=== PATIENT | male | born 1960 | race African-American/Black ===

== ENCOUNTER 2024-08-25 23:20 | Inpatient (IN) | payer OTHER ==
[2024-08-26] MEDS ORDERED: ACETAMINOPHEN INJECTION 100 ML ONE (00:20)
[2024-08-26] MEDS: ACETAMINOPHEN 1000 MG/100 ML BAG IVPB ONE ×2 (00:35→21:47)
[2024-08-26] MEDS ORDERED: MORPHINE SULFATE 2 MG/ML SYRINGE ONE (01:03)
[2024-08-26] MEDS: morphine CARPU-JECT 2 MG/1 ML DISP.SYRIN IVPUSH ONE (01:08)
[2024-08-26] MEDS ORDERED: ONDANSETRON 4 MG/2 ML VIAL ONE (01:18)
[2024-08-26 01:23] LABS: INR 0.96 (0.83-1.09); PROTHROMBIN TIME (PATIENT) 11.1 SEC (9.7-13.0)
[2024-08-26 01:26] LABS: ACTIVATED PTT 31.9 SECONDS (25.2-36.5)
[2024-08-26] MEDS: ONDANSETRON 4 MG/2 ML VIAL IVPUSH ONE (01:27)
[2024-08-26 01:30] LABS: BASO % 0.4 % (0-2.0); EOS % 2.5 % (0-4.5); HEMATOCRIT 27.5 % (35.4-49); LYMPH % 11.1 % (8-40); MCH 28.4 pg (25.7-33.7); MCHC 32.8 g/dl (32.0-35.9); MEAN CELL VOLUME 86.8 fl (80-96); MEAN PLT VOLUME 8.1 fl (7.5-11.1); MONO % 16.8 % (3.8-10.2); NEUT % 69.2 % (42.8-82.8); PLATELET COUNT 272 10^3/uL (134-434); RBC 3.17 M/mm3 (4.00-5.60); RDW 16.2 % (11.9-15.9)
[2024-08-26] MEDS ORDERED: HYDROmorphone HCl 2 MG/ML VIAL ONE (01:39)
[2024-08-26 01:44] LABS: CHLORIDE 102 mmol/L (98-107); SODIUM 136 mmol/L (136-145)
[2024-08-26] MEDS: HYDROmorphone HCl 2 MG/ML VIAL IVPUSH ONE (01:45)
[2024-08-26 01:46] LABS: CALCIUM 9.2 mg/dL (8.5-10.1)
[2024-08-26 01:47] LABS: ALBUMIN 3.4 g/dl (3.4-5.0); BLOOD UREA NITROGEN 61.6 mg/dL (7-18); CO2 27 mmol/L (21-32); GLUCOSE,RANDOM 77 mg/dL (74-106)
[2024-08-26 01:50] LABS: SGOT/AST 40 U/L (15-37); SGPT/ALT 60 U/L (13-61)
[2024-08-26 01:51] LABS: BILIRUBIN,TOTAL 0.5 mg/dL (0.2-1); TOT PROT 7.1 g/dl (6.4-8.2)
[2024-08-26 01:53] LABS: ALK PHOS 129 U/L (45-117)
[2024-08-26] MEDS ORDERED: PIPERACILLIN/TAZOB 4.5 GM 4.5 GM/100 ML BAG IVPB ONE (01:57)
[2024-08-26] MEDS ORDERED: VANCOMYCIN 1 GRAM (PRE-DOCKED) 1,000 MG/250 ML BAG IVPB ONE (01:58)
[2024-08-26] MEDS: PIPERACILLIN/TAZOB 4.5 GM 4.5 GM in DEXTROSE 5%-WATER 100 ML IVPB ONE (02:13)
[2024-08-26 02:15] LABS: ANION GAP 7 mmol/L (4-13); POTASSIUM 6.3 mmol/L (3.5-5.1)
[2024-08-26] MEDS: VANCOMYCIN 1,000 MG in DEXTROSE 5%-WATER - 250 ML IVPB ONE (02:24)
[2024-08-26 02:30] LABS: HIV INTERPRETATION NEGATIVE (NEGATIVE)
[2024-08-26 03:40] LABS: ERYTHROCYTE SEDIMENTATION RATE 14 mm/hr (0-20)
[2024-08-26 03:42] LABS: CHLORIDE 103 mmol/L (98-107); SODIUM 137 mmol/L (136-145)
[2024-08-26 03:43] LABS: CALCIUM 8.8 mg/dL (8.5-10.1); CO2 27 mmol/L (21-32)
[2024-08-26 03:44] LABS: BLOOD UREA NITROGEN 56.4 mg/dL (7-18); GLUCOSE,RANDOM 104 mg/dL (74-106)
[2024-08-26 03:47] LABS: CREATININE 6.1 mg/dL (0.55-1.3)
[2024-08-26 03:53] LABS: ANION GAP 7 mmol/L (4-13); POTASSIUM 6.2 mmol/L (3.5-5.1)
[2024-08-26] MEDS ORDERED: DEXTROSE 50%-WATER 25 GM/50 ML DISP.SYRIN ONE (04:16)
[2024-08-26] MEDS ORDERED: ALBUTEROL SO4 0.083% IH SOL 2.5 MG/3 ML VIAL.NEB. NEB ONE (04:16)
[2024-08-26] MEDS ORDERED: FUROSEMIDE 40 MG/4 ML INJECTABLE VIAL ONE (04:16)
[2024-08-26] MEDS ORDERED: INSULIN REGULAR HUMAN 100 UNITS/ML *VIAL ONE (04:17)
[2024-08-26] MEDS: DEXTROSE 50%-WATER - 25 GM/50 ML VIAL IVPUSH ONE (04:28)
[2024-08-26] MEDS: INSULIN REGULAR HUMAN 100 UNITS/ML *VIAL IVPUSH ONE (04:28)
[2024-08-26] MEDS: ALBUTEROL SO4 0.083% IH SOL 2.5 MG/3 ML VIAL.NEB. NEB ONE (04:28)
[2024-08-26] MEDS: FUROSEMIDE 40 MG/4 ML INJECTABLE VIAL IVPUSH ONE (04:29)
[2024-08-26] MEDS: SODIUM ZIRCONIUM CYCLOSILICATE (LOKELMA) 5 GM PACKET PO ONE (04:30)
[2024-08-26] MEDS ORDERED: SODIUM ZIRCONIUM CYCLOSILICATE (LOKELMA) 10 GM PACKET ONE (04:30)
[2024-08-26] MEDS ORDERED: amLODIPine BESYLATE 10 MG TABLET (FP) ONE (04:54)
[2024-08-26] MEDS ORDERED: LABETALOL HCL 100 MG TABLET (FP) ONE (04:54)
[2024-08-26] MEDS: LABETALOL HCL 100 MG TABLET (FP) PO ONE (04:56)
[2024-08-26] MEDS: amLODIPine BESYLATE 10 MG TABLET (FP) PO ONE (04:56)
[2024-08-26] MEDS: DEXTROSE 50%-WATER 25 GM/50 ML DISP.SYRIN IVPUSH ONE ×2 (06:50→08:17)
[2024-08-26] MEDS: DEXTROSE 10%-WATER - 1,000 ML IV SCH (07:09)
[2024-08-26 08:55] LABS: CHLORIDE 104 mmol/L (98-107); POTASSIUM 4.7 mmol/L (3.5-5.1); SODIUM 139 mmol/L (136-145)
[2024-08-26 08:58] LABS: ANION GAP 8 mmol/L (4-13); BLOOD UREA NITROGEN 59.7 mg/dL (7-18); CO2 28 mmol/L (21-32); MAGNESIUM 2.1 mg/dL (1.8-2.4)
[2024-08-26 09:02] LABS: CREATININE 6.5 mg/dL (0.55-1.3); PHOSPHOROUS 4.3 mg/dL (2.5-4.9)
[2024-08-26] MEDS ORDERED: DEXTROSE 10%-WATER - 1,000 ML IV SCH (09:16)
[2024-08-26] MEDS ORDERED: DEXTROSE 50%-WATER - 25 GM/50 ML VIAL IVPUSH PRN ×2 (09:29→09:33)
[2024-08-26 09:36] LABS: GLUCOSE,RANDOM 30 mg/dL (74-106); GLUCOSE,RANDOM 31 mg/dL (74-106)
[2024-08-26] MEDS ORDERED: DEXTROSE 50%-WATER 25 GM/50 ML DISP.SYRIN IVPUSH PRN (09:49)
[2024-08-26] MEDS ORDERED: PIPERACILLIN/TAZOB 2.25 GM 2.25 GM in DEXTROSE 5%-WATER - 50 ML IVPB SCH (10:00)
[2024-08-26] MEDS: PIPERACILLIN/TAZOB 2.25 GM 2.25 GM/50 ML BAG IVPB SCH (10:06)
[2024-08-26] MEDS: HEPARIN NA (PORCINE) 5,000 UNITS/ML 1ML VIAL SQ SCH (14:38)
[2024-08-26] MEDS ORDERED: SODIUM CHLORIDE 250 ML IV PRN (15:14)
[2024-08-26] MEDS: oxyCODONE HCL 5 MG TABLET PO PRN (17:34)
[2024-08-26] MEDS: amLODIPine BESYLATE 10 MG TABLET (FP) PO SCH (21:08)
[2024-08-26] MEDS: TAMSULOSIN HCL 0.4 MG CAP PO SCH (21:08)
[2024-08-26] MEDS: ATORVASTATIN CA 80 MG TABLET (FP) PO SCH (21:08)
[2024-08-26] MEDS: CEFTRIAXONE 2 GM-D5W BAG 2 GM/50 ML BAG IVPB SCH (21:46)
[2024-08-27] MEDS: HEPARIN NA (PORCINE) 5,000 UNITS/ML 1ML VIAL IVPUSH ONE (08:30)
[2024-08-27 09:17] LABS: BASO % 0.6 % (0-2.0); EOS % 3.4 % (0-4.5); HEMATOCRIT 26.9 % (35.4-49); HEMOGLOBIN 8.7 GM/dL (11.7-16.9); LYMPH % 11.8 % (8-40); MCH 28.3 pg (25.7-33.7); MCHC 32.2 g/dl (32.0-35.9); MEAN CELL VOLUME 87.7 fl (80-96); MEAN PLT VOLUME 7.9 fl (7.5-11.1); MONO % 14.4 % (3.8-10.2); NEUT % 69.8 % (42.8-82.8); PLATELET COUNT 249 10^3/uL (134-434); RBC 3.06 M/mm3 (4.00-5.60); RDW 15.6 % (11.9-15.9); WHITE BLOOD COUNT 8.6 K/mm3 (4.0-10.0)
[2024-08-27 09:24] LABS: CHLORIDE 99 mmol/L (98-107); POTASSIUM 5.5 mmol/L (3.5-5.1); SODIUM 135 mmol/L (136-145)
[2024-08-27 09:26] LABS: ANION GAP 9 mmol/L (4-13); BLOOD UREA NITROGEN 75.4 mg/dL (7-18); CALCIUM 8.9 mg/dL (8.5-10.1); CO2 26 mmol/L (21-32); GLUCOSE,RANDOM 134 mg/dL (74-106)
[2024-08-27 09:31] LABS: CREATININE 8.1 mg/dL (0.55-1.3)
[2024-08-27] MEDS: EPOETIN ALFA-EPBX 3,000 UNIT/ML VIAL IVPUSH ONE (09:47)
[2024-08-27] MEDS: HEPARIN NA (PORCINE) 5,000 UNITS/ML 1ML VIAL IVPUSH SCH (09:49)
[2024-08-27] MEDS: LABETALOL HCL 100 MG TABLET (FP) PO SCH (13:08)
[2024-08-27] MEDS: CLOPIDOGREL BISULFATE 75 MG TABLET (FP) PO SCH (13:08)
[2024-08-27] MEDS: ACETAMINOPHEN 1000 MG/100 ML BAG IVPB ONE (21:13)
[2024-08-28] MEDS: LABETALOL HCL 100 MG TABLET (FP) PO SCH (13:56)
[2024-08-28] MEDS: oxyCODONE HCL 5 MG TABLET PO PRN (21:34)
[2024-08-29] MEDS: MELATONIN 5 MG TABLETS PO PRN (21:25)
[2024-08-30 09:53] LABS: HEMOGLOBIN 8.7 GM/dL (11.7-16.9); MCH 28.3 pg (25.7-33.7); MCHC 32.4 g/dl (32.0-35.9); MEAN CELL VOLUME 87.4 fl (80-96); MEAN PLT VOLUME 7.4 fl (7.5-11.1); PLATELET COUNT 249 10^3/uL (134-434); RBC 3.09 M/mm3 (4.00-5.60); RDW 16.1 % (11.9-15.9); WHITE BLOOD COUNT 7.1 K/mm3 (4.0-10.0)
[2024-08-30] MEDS ORDERED: SODIUM CHLORIDE 250 ML IV PRN (09:55)
[2024-08-30] MEDS ORDERED: EPOETIN ALFA-EPBX 3,000 UNIT/ML VIAL IVPUSH ONE (10:15)
[2024-08-30 10:31] LABS: CHLORIDE 103 mmol/L (98-107); POTASSIUM 5.7 mmol/L (3.5-5.1); SODIUM 138 mmol/L (136-145)
[2024-08-30 10:34] LABS: CALCIUM 8.8 mg/dL (8.5-10.1)
[2024-08-30 10:35] LABS: ANION GAP 10 mmol/L (4-13); BLOOD UREA NITROGEN 67.8 mg/dL (7-18); CO2 26 mmol/L (21-32); GLUCOSE,RANDOM 93 mg/dL (74-106)
[2024-08-30 10:39] LABS: CREATININE 9.4 mg/dL (0.55-1.3)
[2024-08-30] MEDS: EPOETIN ALFA-EPBX 4,000 UNIT/ML VIAL IVPUSH ONE (11:24)
[2024-08-31] MEDS ORDERED: DEXTROSE 50%-WATER 25 GM/50 ML DISP.SYRIN IVPUSH PRN (18:47)
[2024-08-31] MEDS ORDERED: DEXTROSE 10%-WATER - 1,000 ML IV SCH (18:47)
[2024-08-31] MEDS: LABETALOL HCL 100 MG TABLET (FP) PO SCH (21:40)
[2024-08-31] MEDS: ATORVASTATIN CA 80 MG TABLET (FP) PO SCH (21:40)
[2024-08-31] MEDS: HEPARIN NA (PORCINE) 5,000 UNITS/ML 1ML VIAL SQ SCH (21:40)
[2024-08-31] MEDS: TAMSULOSIN HCL 0.4 MG CAP PO SCH (21:40)
[2024-08-31] MEDS: amLODIPine BESYLATE 10 MG TABLET (FP) PO SCH (21:41)
[2024-08-31] MEDS: DEXTROSE 10%-WATER - 500 ML IV SCH (23:41)
[2024-09-01] MEDS: MELATONIN 5 MG TABLETS PO PRN (00:05)
[2024-09-01] MEDS: oxyCODONE HCL 5 MG TABLET PO PRN (00:05)
[2024-09-01] MEDS: ACETAMINOPHEN 1000 MG/100 ML BAG IVPB ONE (00:10)
[2024-09-01] MEDS ORDERED: SODIUM CHLORIDE 250 ML IV PRN (08:05)
[2024-09-01 11:07] LABS: BASO % 0.6 % (0-2.0); EOS % 3.3 % (0-4.5); HEMOGLOBIN 8.9 GM/dL (11.7-16.9); LYMPH % 13.7 % (8-40); MCH 28.1 pg (25.7-33.7); MCHC 31.7 g/dl (32.0-35.9); MEAN CELL VOLUME 88.6 fl (80-96); MEAN PLT VOLUME 7.5 fl (7.5-11.1); MONO % 17.9 % (3.8-10.2); NEUT % 64.5 % (42.8-82.8); PLATELET COUNT 243 10^3/uL (134-434); RBC 3.15 M/mm3 (4.00-5.60); RDW 15.8 % (11.9-15.9); WHITE BLOOD COUNT 6.3 K/mm3 (4.0-10.0)
[2024-09-01] MEDS: CLOPIDOGREL BISULFATE 75 MG TABLET (FP) PO SCH (11:14)
[2024-09-01 11:17] LABS: CHLORIDE 100 mmol/L (98-107); SODIUM 143 mmol/L (136-145)
[2024-09-01 11:21] LABS: CALCIUM 9.2 mg/dL (8.5-10.1)
[2024-09-01 11:22] LABS: ALBUMIN 3.1 g/dl (3.4-5.0); ANION GAP 17 mmol/L (4-13); BLOOD UREA NITROGEN 44.4 mg/dL (7-18); CO2 26 mmol/L (21-32); GLUCOSE,RANDOM 113 mg/dL (74-106)
[2024-09-01 11:25] LABS: SGOT/AST 24 U/L (15-37); SGPT/ALT 41 U/L (13-61)
[2024-09-01 11:27] LABS: BILIRUBIN,TOTAL 0.6 mg/dL (0.2-1); TOT PROT 6.5 g/dl (6.4-8.2)
[2024-09-01 11:31] LABS: ALK PHOS 98 U/L (45-117); CREATININE 8.5 mg/dL (0.55-1.3)
[2024-09-01] MEDS: HEPARIN NA (PORCINE) 5,000 UNITS/ML 1ML VIAL IVPUSH SCH (13:00)
[2024-09-01] MEDS: HEPARIN NA (PORCINE) 5,000 UNITS/ML 1ML VIAL IVPUSH ONE (13:00)
[2024-09-01] MEDS: EPOETIN ALFA-EPBX 4,000 UNIT/ML VIAL IVPUSH ONE (14:33)
[2024-09-01] MEDS: CEFTRIAXONE 2 GM-D5W BAG 2 GM/50 ML BAG IVPB SCH (16:36)
[2024-09-01] MEDS: GABAPENTIN 100 MG CAPSULE PO SCH (16:54)
[2024-09-02 15:19] VITALS: BMI 20.2
[2024-09-02] MEDS ORDERED: HEPARIN NA (PORCINE) 5,000 UNITS/ML 1ML VIAL IVPUSH SCH (18:00)
[2024-09-03] MEDS ORDERED: SODIUM CHLORIDE 250 ML IV PRN (08:22)
[2024-09-03] MEDS: HEPARIN NA (PORCINE) 5,000 UNITS/ML 1ML VIAL IVPUSH SCH (08:30)
[2024-09-03] MEDS: EPOETIN ALFA-EPBX 3,000 UNIT/ML VIAL IVPUSH SCH (09:58)
[2024-09-03 10:04] VITALS: RESP 18
[2024-09-03] MEDS ORDERED: ACETAMINOPHEN 1000 MG/100 ML BAG IVPB PRN (16:32)
[2024-09-03] MEDS: GABAPENTIN 100 MG CAPSULE PO SCH (23:15)
[2024-09-05 10:32] VITALS: BP 148/98; PULSE 76; TEMP 98.2
== END 2024-09-05 14:05 | disposition home or self-care (01) | DRG 682 ==
LOC: JER 23:20 → JERBED 08-26 05:21 → J4W 08-26 06:44 → J5S 08-31 18:23
PROVIDERS: ADMIT Internal Medicine; ATTEND Internal Medicine
PROC: 5A1D70Z Performance of Urinary Filtration, Intermittent, Less than 6 Hours Per Day (ICD-10-PCS; principal; 2024-08-30)
DX: I12.0 Hypertensive chronic kidney disease with stage 5 chronic kidney disease or end stage renal disease (principal); N18.6 End stage renal disease; Z99.2 Dependence on renal dialysis; L08.9 Local infection of the skin and subcutaneous tissue, unspecified; H54.8 Legal blindness, as defined in USA; E16.0 Drug-induced hypoglycemia without coma; T38.3X5A Adverse effect of insulin and oral hypoglycemic [antidiabetic] drugs, initial encounter; Y92.89 Other specified places as the place of occurrence of the external cause; E87.5 Hyperkalemia
CPT/HCPCS: 36415; 71045-TC-FY; 73140-TC-RT-FY; 80048; 80053; 82947; 82962; 83036; 83735; 84100; 85025; 85027; 85610; 85651; 85730; 86140; 86704; 86803; 87340; 87389; 87517; 93005; 93010; 93306-TC; 93922; 93931; 99285-25; J0131; J1644; Q5106

== ENCOUNTER 2024-10-08 15:57 | Emergency (ER) | payer OTHER ==
[2024-10-08 16:19] VITALS: BMI 21.2
[2024-10-08] MEDS ORDERED: ALBUTEROL SO4 HFA INHALER IH ONE (17:30)
[2024-10-08] MEDS ORDERED: HYDROmorphone HCL CARPU-JECT 2 MG/1 ML DISP.SYRIN ONE ×2 (18:05→19:37)
[2024-10-08] MEDS ORDERED: ACETAMINOPHEN INJECTION 100 ML ONE (18:05)
[2024-10-08] MEDS ORDERED: ONDANSETRON 4 MG/2 ML VIAL ONE ×2 (18:06→23:59)
[2024-10-08] MEDS: ONDANSETRON 4 MG/2 ML VIAL IVPB ONE (18:21)
[2024-10-08] MEDS: ACETAMINOPHEN 1000 MG/100 ML BAG IVPB ONE (18:21)
[2024-10-08 18:27] LABS: HEMATOCRIT 38.1 % (35.4-49); MCH 28.1 pg (25.7-33.7); MCHC 31.4 g/dl (32.0-35.9); MEAN CELL VOLUME 89.7 fl (80-96); MEAN PLT VOLUME 7.3 fl (7.5-11.1); PLATELET COUNT 187 10^3/uL (134-434); RBC 4.25 M/mm3 (4.00-5.60); RDW 15.5 % (11.9-15.9); WHITE BLOOD COUNT 4.7 K/mm3 (4.0-10.0)
[2024-10-08] MEDS: HYDROmorphone HCl 2 MG/ML VIAL IVPUSH ONE ×2 (18:38→19:42)
[2024-10-08 19:02] LABS: CHLORIDE 103 mmol/L (98-107); SODIUM 133 mmol/L (136-145)
[2024-10-08 19:04] LABS: ALBUMIN 3.6 g/dl (3.4-5.0); ANION GAP 9 mmol/L (4-13); BLOOD UREA NITROGEN 19.7 mg/dL (7-18); CALCIUM 9.5 mg/dL (8.5-10.1); CO2 21 mmol/L (21-32); GLUCOSE,RANDOM 87 mg/dL (74-106)
[2024-10-08 19:07] LABS: SGPT/ALT 68 U/L (13-61)
[2024-10-08 19:08] LABS: CREATININE 5.3 mg/dL (0.55-1.3)
[2024-10-08 19:09] LABS: BILIRUBIN,TOTAL 0.5 mg/dL (0.2-1); TOT PROT 7.8 g/dl (6.4-8.2)
[2024-10-08 19:10] LABS: ALK PHOS 115 U/L (45-117)
[2024-10-08 19:14] LABS: SGOT/AST 36 U/L (15-37)
[2024-10-08 19:23] VITALS: RESP 18
[2024-10-08 19:29] LABS: ERYTHROCYTE SEDIMENTATION RATE 18 mm/hr (0-20)
[2024-10-09] MEDS: ONDANSETRON 4 MG/2 ML VIAL IVPUSH ONE (00:02)
[2024-10-09 01:16] VITALS: BP 172/97; PULSE 85; TEMP 98.9
== END 2024-10-09 01:34 | disposition short-term general hospital (02) ==
LOC: JER 15:57
PROC: 3E033NZ Introduction of Analgesics, Hypnotics, Sedatives into Peripheral Vein, Percutaneous Approach (ICD-10-PCS; principal; 2024-10-08)
PROC: 3E033NZ Introduction of Analgesics, Hypnotics, Sedatives into Peripheral Vein, Percutaneous Approach (ICD-10-PCS; 2024-10-08)
PROC: 3E033NZ Introduction of Analgesics, Hypnotics, Sedatives into Peripheral Vein, Percutaneous Approach (ICD-10-PCS; 2024-10-08)
PROC: 3E033GC Introduction of Other Therapeutic Substance into Peripheral Vein, Percutaneous Approach (ICD-10-PCS; 2024-10-08)
PROC: 3E033GC Introduction of Other Therapeutic Substance into Peripheral Vein, Percutaneous Approach (ICD-10-PCS; 2024-10-08)
DX: J10.1 Influenza due to other identified influenza virus with other respiratory manifestations (principal); M54.50 Low back pain, unspecified; M79.671 Pain in right foot; M79.672 Pain in left foot
CPT/HCPCS: 0241U-QW; 36415; 71045-TC-FY; 80053; 83735; 85025; 85651; 86140; 93005; 93010; 99285-25; J0131